=== PATIENT | male | born 2005 | race Caucasian/White ===

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

== ENCOUNTER 2025-05-01 19:50 | Emergency (ER) | payer BC, SELFPAY ==
[2025-05-01 19:57] VITALS: BP 142/66; PULSE 95; RESP 16; TEMP 36.6; O2SAT 99
[2025-05-01 20:01] VITALS: BP 142/66; PULSE 95; RESP 16; TEMP 36.6; O2SAT 99
--- NOTE | 2025-05-01 20:23 | W.ED.GENAD ---
Discharge Plan Disposition Patient Disposition: Home Condition: Good Discharge Details Clinical Impression: Hyperglycemia Primary Care Provider: An Lindsey ED Provider: Ronnell Aden Home Meds and New Rx's Prescriptions: No Action insulin aspart U-100 [Novolog FlexPen U-100 Insulin] 100 unit/mL (3 mL) insulin pen 4 unit subcut TID Rx Instructions: 4 units before each meal insulin glargine [Lantus Solostar U-100 Insulin] 100 unit/mL (3 mL) insulin pen 30 unit subcut QPM Discharge Instructions Instructions: High Blood Sugar, Adult ED Additional Instructions: At this time your blood sugar was elevated but it is improved after insulin. Please continue to monitor your sugars closely at home, take your insulin as scheduled. Please continue to do your best to avoid any carb based products, sugary products, and make sure you are drinking plenty of water. As we discussed together, although the majority of your laboratory workup was normal, your lipase levels were elevated. Please follow-up with your physician and state I went to the emergency department and the doctor found that my lipase levels were abnormally elevated, although he did not see any signs to suggest pancreatitis. He recommended that I get a recheck of my lipase levels to make sure they are improving/downtrending. The elevated lipase level is most likely secondary to an inflammatory process from a viral etiology, however it could be reflective of a different underlying pathology. If your numbers still continue to climb on reassessment at your clinic, then you may need to have further imaging performed of your pancreas and gallbladder. If you notice any worsening of your symptoms, or any new symptoms such as vomiting, diarrhea, fever, chills, shortness of breath, chest pain, numbness, weakness, or fainting , please return immediately to the emergency department for reevaluation. Please follow up with your primary care provider as soon as possible for reassessment and reevaluation. As always, it was a pleasure participating in your medical care today. Stand Alone Forms: Portal Information Referrals: An Lindsey NP [Primary Care Provider, Pediatrics Medical] [facility] General Date/Time Provider Initiated Documentation: 05/01/25 20:02. HPI Narrative: This is a pleasant 19-year-old male with a new diagnosis of type 1 diabetes mellitus on insulin, and no other significant past medical history who presents today for evaluation of elevated blood sugars. Patient has a continuous glucose monitor, and noticed today that his blood sugars were reading consistently high. Although today is [place], he denies eating any sweets or significant carbs. For dinner he just had roast beef, and stuck with protein and a salad. He denies any other changes in his diet otherwise. He has been taking his insulin as prescribed. He denies any headache, frequent urination, chest pain, shortness of breath, change in mental status, change in vision status. Related Data Home Medications ?Medication ?Instructions ?Recorded ?Confirmed insulin aspart U-100 100 unit/mL 4 unit subcut TID 05/01/25 05/01/25 (3 mL) subcutaneous pen (Novolog FlexPen U-100 Insulin aspart) insulin glargine 100 unit/mL (3 30 unit subcut QPM 05/01/25 05/01/25 mL) subcutaneous pen (Lantus Solostar U-100 Insulin) Allergies Allergy/AdvReac Type Severity Reaction Status Date / Time [place] Sodium Glucinate AdvReac Intermediate Vomiting Uncoded 05/01/25 20:02 General Stated Complaint: Diabetes LYRIC: 3 Exam Narrative Exam Narrative: 1.Const: Well-nourished, Well-developed, appearing stated age 2.Eyes: PERRL, no conjunctival injection, and symmetrical lids. 3.ENT: Atraumatic external nose and ears. Dry MM. Neck: Symmetric, trachea midline, No thyromegaly. 4.CVS: +S1/S2, Peripheral pulses 2+ and equal in all extremities. Brisk capillary refill in all extremities. 5.RESP: Unlabored respiratory effort. Clear to auscultation bilaterally. No wheezes rales or rhonchi 6.GI: Soft, Nontender/Nondistended, No hepatosplenomegaly. No guarding or rebound. 7.MSK: Normocephalic/Atraumatic, Extremities w/o deformity or ttp No cyanosis or clubbing, Normal movement of all extremities 8.Skin: Warm, Dry. No rashes or lesions. 9.Neuro: food service assistant II-XII grossly intact. Sensation grossly intact, no focal neurologic deficits. 10.Psych: (AAO) x3. Appropriate mood and affect Course Vital Signs Vital signs: Vital Signs Temperature 36.6 C 05/01/25 19:57 Pulse 95 H 12/25/25 19:57 Respiratory Rate 16 05/01/25 19:57 Blood Pressure 142/66 H 05/01/25 19:57 Pulse Oximetry 99 05/01/25 19:57 Temperature 36.6 C 05/01/25 20:01 Temperature Source Temporal Artery Scan 05/01/25 20:01 Pulse 95 H 05/01/25 20:01 Respiratory Rate 16 05/01/25 20:01 Blood Pressure 142/66 H 05/01/25 20:01 Blood Pressure Position Sitting 05/01/25 20:01 Pulse Oximetry 99 05/01/25 20:01 Oxygen Delivery Method Room Air 05/01/25 20:01 Oxygen Flow Rate 0 05/01/25 20:01 Pain Level 0 05/01/25 20:01 Medical Decision Making This is a pleasant 19-year-old male with a new diagnosis of type 1 diabetes mellitus on insulin, and no other significant past medical history who presents today for evaluation of elevated blood sugars. Patient has a continuous glucose monitor, and noticed today that his blood sugars were reading consistently high. Although today is [place] Day, he denies eating any sweets or significant carbs. For dinner he just had roast beef, and stuck with protein and a salad. He denies any other changes in his diet otherwise. He has been taking his insulin as prescribed. He denies any headache, frequent urination, chest pain, shortness of breath, change in mental status, change in vision status. Exam demonstrates a well-appearing male, dry mucous membranes, but no other abnormalities. No focal neurologic deficits. No evidence of ketone breath, no altered mental status. Minimal tachycardia. Symptoms appear inconsistent with DKA, suspect hyperglycemia secondary to fluctuating pancreatic function versus dietary change. We will rehydrate, check a beta hydroxybutyrate, VBG and evaluate his anion gap, will give 12 units of subcutaneous insulin for his blood sugar that is a reading in the 400s, we will monitor closely and reassess. 9:36 PM Laboratory workup has returned, no white count or bandemia or left shift. Hemoglobin at patient's baseline. VBG shows no acidosis. No significant drop in bicarb. Electrolytes normal. BUN is high at 33, suggestive of prerenal dehydration/azotemia. Repeat blood sugar after insulin administration shows a blood sugar in the 320s now. Beta hydroxybutyrate normal suggestive of no DKA. Lipase is elevated at 110, but initial and repeat exam continues to show no abdominal pain epigastric tenderness nausea or vomiting or any other symptoms to suggest pancreatitis. Recommend close follow-up and reassessment with his PCP for nonemergent trending. As he has no pain tenderness or fever, I do not see an indication at this time of CT imaging of the abdomen but rather very close follow-up and lipase trending. Urinalysis shows no ketones. Patient feels very comfortable with plan. Did give the option for continued observation here but patient has declined. I have extensively reviewed the treatment plan and discharge instructions with the patient and their family. I have addressed all patient concerns at this time. The patient and family was made aware of what symptoms to monitor for that would warrant a return to the emergency department. Discussed the plan with the patient and family, they demonstrate verbal understanding and agreement with our assessment and plan at this time. The documentation in this chart was dictated using [employer] dictation software. Please excuse any dictation errors. PFSH All Active Problems (Updated 05/01/25 @ 22:13 by Ronnell Aden DO) Hyperglycemia (Acute) Acne (Acute) Dyslexia (Acute 01/20/15) has IEP glasses recommended Medical History Abscess Dyslexia IEP Family History Mother Essential hypertension Father Diabetes Hyperlipidemia Other Personal history of malignant neoplasm MGF: t-cell lymphoma Other Alcohol abuse Healthy adult Social History Smoking/Tobacco Use Status: Never Smoking risk assessment performed?: Yes Alcohol Intake: never Drug use: Never Substance use type: does not use Communication Needs: None Education Level: college Details: [employer] Pets and animals: Yes Pets and animals: dog(s) Do you think of yourself as: straight/heterosexual Current gender identity: male What type of physical activity do you participate in: regular exercise Seatbelt use: always Helmet use: Yes Do you feel safe at home: Yes Do you feel safe in your relationship?: Yes
[2025-05-01] MEDS: Insulin REGULAR-Human 100 UNITS/ML UNIT 12 UNITS SC (20:24)
[2025-05-01 20:25] LABS: BE (Venous) 5 mmol/L (-2-3); HCO3 (Venous) 30 mmol/L (23-28); O2 Sat (Venous) 70 %; TCO2 (Venous) 27 mmol/L (24-29); pCO2 (Venous) 49 mmHg (41-51); pO2 (Venous) 38 mmHg
[2025-05-01 20:27] LABS: Abs Immature Grans 0.01 10^3/uL (0.0-0.06); HCT 35.6 % (40.0-50.0); HGB 11.7 g/dL (13.5-17.5); Immature Grans % 0.2 %; MCH 29.5 pg (27.0-33.0); MCHC 32.9 % (32.0-36.0); MCV 90 fL (80-95); MPV 9.7 fL (8.0-11.0); Platelet Count 240 10^3/uL (130-400); RBC 3.96 10^6/uL (4.36-5.78); RDW 14.6 % (11.8-14.1); RDW-SD 48.2 fL; WBC 4.78 10^3/uL (4.4-10.8)
[2025-05-01] MEDS: Normal Saline 1,000 ML 1000 ML IV (20:27)
[2025-05-01 20:46] LABS: Glucose 500 mg/dL (Negative)
[2025-05-01 20:46] LABS: Lipase 110 U/L (<53)
[2025-05-01 20:49] LABS: ALT 35 U/L (10-49); AST 21 U/L (<34); Albumin 4.3 g/dL (3.2-5.0); Alkaline Phosphatase 90 U/L (46-116); Anion Gap 8.3 mmol/L (3-11); BUN 33 mg/dL (9-23); Bilirubin, Total 0.3 mg/dL (0.2-1.2); CO2 29.3 mmol/L (20.0-31.0); Calcium 9.2 mg/dL (8.3-10.6); Chloride 99 mmol/L (98-107); Glucose 380 mg/dL (74-106); Potassium 4.1 mmol/L (3.5-5.1); Sodium 137 mmol/L (136-145); Total Protein 7.4 g/dL (5.7-8.2)
[2025-05-01 21:17] LABS: Beta Hydroxybutyrate 0.12 mmol/L (0.02-0.27)
[2025-05-01 22:18] VITALS: BP 125/74; PULSE 106; TEMP 36.6; O2SAT 98
[2025-05-01 22:20] VITALS: BP 125/74; PULSE 94; RESP 16; O2SAT 98
== END 2025-05-01 22:20 | disposition home or self-care (01) ==
PROVIDERS: Emergency Provider Student in an Organized Health Care Education/Training Program; PCP Nurse Practitioner Family
DX: E10.65 Type 1 diabetes mellitus with hyperglycemia (principal)
CPT/HCPCS: 36415; 36416; 80053; 82010; 82805; 82962; 83690; 96360; 99284; 81003; 85025; 99283; J1815